=== PATIENT | female | born 1960 | race American Indian/Alaskan Native ===

== ENCOUNTER 2020-03-08 14:17 | Outpatient (CLI) | payer OTHER | END 2020-03-08 16:00 | disposition home or self-care (01) | LOC: NUCLEAR 14:17 | PROVIDERS: ATTEND General Practice | DX: M85.89 Other specified disorders of bone density and structure, multiple sites (principal); E03.4 Atrophy of thyroid (acquired); E03.8 Other specified hypothyroidism; Z85.3 Personal history of malignant neoplasm of breast; E55.9 Vitamin D deficiency, unspecified; E56.8 Deficiency of other vitamins; R73.01 Impaired fasting glucose ==

== ENCOUNTER 2022-04-11 10:38 | Outpatient (CLI) | payer OTHER | END 2022-04-11 10:39 | disposition home or self-care (01) | LOC: NUCLEAR 10:38 | PROVIDERS: ATTEND Obstetrics & Gynecology Obstetrics | DX: M81.0 Age-related osteoporosis without current pathological fracture (principal) ==

== ENCOUNTER 2022-06-23 13:14 | Outpatient (CLI) | payer OTHER | END 2022-06-23 13:24 | disposition home or self-care (01) | LOC: PPH VACUNA 13:14 | PROVIDERS: ATTEND Emergency Medicine Pediatric Emergency Medicine | DX: Z23 Encounter for immunization (principal) ==

== ENCOUNTER → 2024-03-15 | Outpatient (CLI) | payer OTHER | END | disposition home or self-care (01) | LOC: NUCLEAR 03-14 13:00 | DX: M81.0 Age-related osteoporosis without current pathological fracture (principal) ==